=== PATIENT | male | born 1970 ===

== ENCOUNTER 2018-07-13 08:22 | Emergency (ER) | payer OTHER ==
[2018-07-13 08:31] VITALS: BP 152/90
[2018-07-13] MEDS ORDERED: TYLENOL PO ONE (08:31)
[2018-07-13] MEDS ORDERED: TYLENOL ONE (08:34)
[2018-07-13] MEDS ORDERED: PERCOCET 5/325 PO ONE (09:29)
[2018-07-13] MEDS ORDERED: IBUPROFEN PO ONE (09:29)
[2018-07-13] MEDS ORDERED: BOOSTRIX IM ONE (09:34)
--- NOTE | 2018-07-13 09:36 | Emergency Department Report ---
Upper Extremity - [facility] Chief Complaint: Extremity Injury, Upper Stated Complaint: THUMB INJURY Time Seen by Provider: 07/13/18 09:29 Upper Extremity: Left Thumb Occurred When: >5 Days Mechanism: Other (punctured with a metal wire) Severity: severe Symptoms: Yes Pain with Movement, Yes Swelling, Yes Laceration or Abrasion, No Deformity, No Numbness, No Weakness, No Bruising/Ecchymosis Other History: Mr. David is a 47 yo male with injured his left thumb 8-10 days ago at work. He accidentally stabbed his left thumb while working. The wound has not healed. Severe pain in left thumb with swelling. Pain with movement. ED Review of Systems ROS: Stated complaint: THUMB INJURY Other details as noted in HPI Constitutional: denies: fever, malaise Skin: rash, lesions ED Past Medical Hx - Past Medical History Previous Medical History?: No - Surgical History Past Surgical History?: No - Social History Smoking Status: Never Smoker Substance Use Type: None - Medications Home Medications: Home Medications Medication Instructions Recorded Confirmed Last Taken Type HYDROcodone/APAP 5-325 [Howe 1 each PO Q6HR PRN #15 tablet 07/13/18 Unknown Rx 5/325] Sulfamethoxazole/Trimethoprim 1 each PO BID 7 Days #14 tablet 07/13/18 Unknown Rx [Bactrim DS TAB] cephALEXin [Keflex] 500 mg PO Q6HR 7 Days #28 capsule 07/13/18 Unknown Rx Upper Extremity Exam - Exam General: Vital signs noted. No distress. Alert and acting appropriately. Head and Torso: No HEENT Abnormality Shoulder Exam: Yes Normal Range of Motion in Shoulder, No Shoulder Tenderness, No Clavicle Tenderness Arm Exam: No Arm Deformity Elbow: Yes Normal Range of Motion in Elbow, No Elbow Tenderness, No Elbow Deformity Wrist: No Wrist Tenderness Hand: Yes Hand Tenderness, Yes Normal ROM in Digit(s), No Hand Deformity, No Digit(s) Deformity, No Tendon Dysfunction CMS Exam: Yes Broken Skin ( left thumb 1 cm mid horizontal wound with scab and dried blood mid-digit with global thumb swelling) ED Course Vital Signs 07/13/18 08:27 Temperature 98.1 F Pulse Rate 61 Respiratory 18 Rate Blood Pressure 152/90 O2 Sat by Pulse 98 Oximetry ED Medical Decision Making - Radiology Data Radiology results: report reviewed Left thumb digit radiographs under my personal interpretation: No fracture no radiopaque foreign body - Medical Decision Making Mr. David presents with left thumb cellulitis with nonhealing puncture wound. rx: bactrim, keflex, norco referred to outpatient clinic Critical care attestation.: If time is entered above; I have spent that time in minutes in the direct care of this critically ill patient, excluding procedure time. ED Disposition Clinical Impression: Cellulitis of left thumb Disposition: - TO HOME OR SELFCARE Is pt being admited?: No Does the pt Need Aspirin: No Condition: Stable Instructions: Cellulitis (ED) Prescriptions: Sulfamethoxazole/Trimethoprim [Bactrim DS TAB] 1 each PO BID 7 Days #14 tablet cephALEXin [Keflex] 500 mg PO Q6HR 7 Days #28 capsule HYDROcodone/APAP 5-325 [Howe 5/325] 1 each PO Q6HR PRN #15 tablet PRN Reason: Pain Referrals: NÉSTOR BOSE MD [Primary Care Provider] - 3-5 Days
--- NOTE | 2018-07-13 09:55 | XRay Report ---
PROCEDURE: XR FINGER(S) 2+V LT TECHNIQUE: Left thumb, 4 views HISTORY: left thumb wound injury trauma COMPARISON: None FINDINGS: There is no fracture seen. There is no dislocation. There is no acute bony lesion. IMPRESSION: There is no acute abnormality identified. This document is electronically signed by Macy Castro MD., July 13 2018 10:53:56 AM ET
[2018-07-13] MEDS ORDERED: TRIPLE ANTIBIOTIC TP ONE (10:09)
== END 2018-07-13 11:05 | disposition home or self-care (01) ==
LOC: ED 08:22
DX: L03.012 Cellulitis of left finger (principal)
CPT/HCPCS: 90471; 90715; A6250

== ENCOUNTER 2018-11-23 14:50 | Emergency (ER) | payer OTHER ==
[2018-11-23 14:58] VITALS: BP 125/79
--- NOTE | 2018-11-23 15:09 | Emergency Department Report ---
ED Recheck HPI - General Chief Complaint: Medical Clearance Stated Complaint: MED REFILL/METFORMIN Time Seen by Provider: 11/23/18 15:02 Source: patient Mode of arrival: Ambulatory Limitations: No Limitations - History of Present Illness Initial Comments: This is a 48-year-old male that presents to the ER for refills of metformin. Patient states he ran out of medication for 1 week. Patient states he tried to fill it at [facility] and they told him he need to get a prescription. He denies urinary frequency, urgency, chest pain, shortness of breath, weakness, or MD Complaint: medication refill request Onset/Timin -: week(s) Returns Today for: request for prescription Symptoms Since Prior Visit: no new symptoms Context: ran out of medication Associated Symptoms: none - Related Data Previous Rx's Medication Instructions Recorded Last Taken Type HYDROcodone/APAP 5-325 [Ruby 1 each PO Q6HR PRN #15 tablet 07/13/18 Unknown Rx 5/325] Sulfamethoxazole/Trimethoprim 1 each PO BID 7 Days #14 tablet 07/13/18 Unknown Rx [Bactrim DS TAB] cephALEXin [Keflex] 500 mg PO Q6HR 7 Days #28 capsule 07/13/18 Unknown Rx metFORMIN [Glucophage] 500 mg PO BID #60 tablet 11/23/18 Unknown Rx Allergies Allergy/AdvReac Type Severity Reaction Status Date / Time No Known Allergies Allergy Unverified 07/13/18 08:27 ED Review of Systems ROS: Stated complaint: MED REFILL/METFORMIN Other details as noted in HPI Constitutional: denies: chills, fever Respiratory: denies: cough, shortness of breath, wheezing Cardiovascular: denies: chest pain, palpitations Gastrointestinal: denies: abdominal pain, nausea, diarrhea Skin: denies: rash, lesions Neurological: denies: headache, weakness, paresthesias Psychiatric: denies: anxiety, depression ED Past Medical Hx - Past Medical History Previous Medical History?: No Hx Diabetes: Yes - Social History Smoking Status: Never Smoker - Medications Home Medications: Home Medications Medication Instructions Recorded Confirmed Last Taken Type HYDROcodone/APAP 5-325 [Ruby 1 each PO Q6HR PRN #15 tablet 07/13/18 Unknown Rx 5/325] Sulfamethoxazole/Trimethoprim 1 each PO BID 7 Days #14 tablet 07/13/18 Unknown Rx [Bactrim DS TAB] cephALEXin [Keflex] 500 mg PO Q6HR 7 Days #28 capsule 07/13/18 Unknown Rx metFORMIN [Glucophage] 500 mg PO BID #60 tablet 11/23/18 Unknown Rx ED Physical Exam - General Limitations: No Limitations General appearance: alert, in no apparent distress - Respiratory Respiratory exam: Present: normal lung sounds bilaterally. Absent: respiratory distress - Cardiovascular Cardiovascular Exam: Present: regular rate, normal rhythm. Absent: systolic murmur, diastolic murmur, rubs, gallop - GI/Abdominal GI/Abdominal exam: Present: soft, normal bowel sounds - Neurological Exam Neurological exam: Present: alert, oriented X3 - Psychiatric Psychiatric exam: Present: normal affect, normal mood - Skin Skin exam: Present: warm, dry, intact, normal color. Absent: rash ED Course Vital Signs 11/23/18 14:55 Temperature 98.0 F Pulse Rate 57 L Respiratory 15 Rate Blood Pressure 125/79 [Right] O2 Sat by Pulse 97 Oximetry ED Recheck MDM - Differential Diagnosis Prescription Refill(s) - Medical Decision Making This is a 48-year-old male that presents to the ER for medication refills. Patient is stable and was examined by me. Patient is asymptomatic. Start metformin 500 mg po bid x 30 days. Referral to a primary care doctor for follow up or if symptoms worsen and continue return to emergency room as soon as possible. At time of discharge, the patient does not seem toxic or ill in appearance. No acute signs of distress noted. Patient agrees to discharge treatment plan of care. No further questions noted by the patient. Critical care attestation.: If time is entered above; I have spent that time in minutes in the direct care of this critically ill patient, excluding procedure time. ED Disposition Clinical Impression: Medication refill Disposition: DC-01 TO HOME OR SELFCARE Is pt being admited?: No Does the pt Need Aspirin: No Condition: Stable Instructions: Diabetes Mellitus Type 2 in Adults (ED), Meal Planning with Diabetes Exchanges (DC) Additional Instructions: Realice un seguimiento con un mdico de atencin primaria para las recargas. He proporcionado lisbeth lista de lugares para hacer un seguimiento a continuacin en la seccin de referencias. Follow up with a primary care doctor for refills. I have provided a list of places to follow up with below in the referrals section. Prescriptions: metFORMIN [Glucophage] 500 mg PO BID #60 tablet Referrals: [facility] [Outside] - 3-5 Days [facility] [Outside] - 3-5 Days [facility] [Outside] - 3-5 Days Time of Disposition: 15:11 Print Language: MOHAWK
== END 2018-11-23 15:54 | disposition home or self-care (01) ==
LOC: ED 14:50
DX: E11.9 Type 2 diabetes mellitus without complications (principal); Z76.0 Encounter for issue of repeat prescription; Z79.899 Other long term (current) drug therapy; Z79.84 Long term (current) use of oral hypoglycemic drugs
CPT/HCPCS: 99281